=== PATIENT | male | born 1980 | race Caucasian/White ===

== ENCOUNTER → 2017-12-20 | Day surgery (SDC) | payer OTHER ==
[~2017-12-20] MED LIST: METHYLPREDNISOLONE ACETATE INJ 40 MG/1 ML ML ONE
--- NOTE | 2017-12-20 16:37 | RADIOLOGY REPORT (SQ) ---
EXAM DESCRIPTION: INJECT/ASPIR HIP/SHLDR/KNEE; FLUORO/NEEDLE PLACEMENT COMPLETED DATE/TIME: 12/20/2017 4:26 pm REASON FOR STUDY: SLAP TEAR COMPARISON: None. FLUOROSCOPY TIME: 10 seconds 1 images saved to PACS. LIMITATIONS: None. PROCEDURE: SITE OF INJECTION: Posterior right shoulder. LOCALIZING CONTRAST TYPE AND DOSE: 1 cc Isovue MEDICATION TYPE AND DOSE: 80 mg Depo-Medrol. 6 cc bupivacaine. Using local anesthesia and sterile technique with fluoroscopic guidance, the needle was advanced into the joint. Iodinated contrast was injected to verify intraarticular placement. This was followed by therapeutic injection of the indicated medications. The needle was removed. There were no immediat e complications. Preprocedure pain level: 6/10. Postprocedure pain level: 2/10. IMPRESSION: THERAPEUTIC INJECTION OF THE RIGHT SHOULDER JOINT ABOVE. COMMENT: Patient medication list reviewed: Yes- Quality ID# [id number]:Eligible professional attests to doc umenting in the medical record they obtained, updated, or reviewed the patient's current medications. . Quality ID 145: Final reports for procedures using fluoroscopy that document radiation exposure josel uis tiffany, or exposure time and number of fluorographic images (if radiation exposure indices are not avail able) TECHNICAL DOCUMENTATION: JOB ID: [id number] [employer]- All Rights Reserved Reading location - IP/workstation name: [email or web address]
--- NOTE | 2017-12-20 16:37 | RADIOLOGY REPORT (SQ) ---
EXAM DESCRIPTION: INJECT/ASPIR HIP/SHLDR/KNEE; FLUORO/NEEDLE PLACEMENT COMPLETED DATE/TIME: 12/20/2017 4:26 pm REASON FOR STUDY: SLAP TEAR COMPARISON: None. FLUOROSCOPY TIME: 10 seconds 1 images saved to PACS. LIMITATIONS: None. PROCEDURE: SITE OF INJECTION: Posterior right shoulder. LOCALIZING CONTRAST TYPE AND DOSE: 1 cc Isovue MEDICATION TYPE AND DOSE: 80 mg Depo-Medrol. 6 cc bupivacaine. Using local anesthesia and sterile technique with fluoroscopic guidance, the needle was advanced into the joint. Iodinated contrast was injected to verify intraarticular placement. This was followed by therapeutic injection of the indicated medications. The needle was removed. There were no immediat e complications. Preprocedure pain level: 6/10. Postprocedure pain level: 2/10. IMPRESSION: THERAPEUTIC INJECTION OF THE RIGHT SHOULDER JOINT ABOVE. COMMENT: Patient medication list reviewed: Yes- Quality ID# [id number]:Eligible professional attests to doc umenting in the medical record they obtained, updated, or reviewed the patient's current medications. . Quality ID 145: Final reports for procedures using fluoroscopy that document radiation exposure jose luis tiffany, or exposure time and number of fluorographic images (if radiation exposure indices are not avail able) TECHNICAL DOCUMENTATION: JOB ID: [id number] [employer]- All Rights Reserved Reading location - IP/workstation name: [email or web address]
== END ==
LOC: RAD 15:42
PROVIDERS: ATTEND Orthopaedic Surgery
DX: S43.431A Superior glenoid labrum lesion of right shoulder, initial encounter (principal); X58.XXXA Exposure to other specified factors, initial encounter
CPT/HCPCS: 20610; 77002; J1020